=== PATIENT | male | born 1955 | race Caucasian/White ===

== ENCOUNTER → 2019-05-25 | Outpatient (REF) | payer BC ==
[2019-05-25 18:19] LABS: APPEARANCE, URINE CLEAR (CLEAR); BACTERIA, URINE AUTO NEGATIVE (NEGATIVE); BILIRUBIN, URINE AUTO NEGATIVE (NEGATIVE); BLOOD, URINE BLOOD NEGATIVE (NEGATIVE); COLOR, URINE YELLOW (YELLOW); GLUCOSE, URINE (UA) AUTO 3+ mg/dL (NEGATIVE); KETONE, URINE AUTO NEGATIVE (NEGATIVE); LEUKOCYTE ESTERASE, URINE AUTO NEGATIVE (NEGATIVE); NITRITE, URINE AUTO NEGATIVE (NEGATIVE); PROTEIN, URINE AUTO NEGATIVE (NEGATIVE); RBC, URINE AUTO 1 /HPF (0-3); SPECIFIC GRAVITY URINE AUTO 1.011 (1.002-1.035); SQUAMOUS EPITHELIAL CELL UR AU 0 /HPF (0-6); UROBILINOGEN, URINE AUTO 0.2 mg/dL (0.0-2.0); WBC, URINE AUTO 0 /HPF (0-3)
== END ==
LOC: M SMT 17:06
PROVIDERS: ATTEND Nurse Practitioner Family
DX: R35.0 Frequency of micturition (principal)

== ENCOUNTER → 2019-06-22 | Outpatient (CLI) | payer BC ==
[2019-06-22 18:48] LABS: BLOOD UREA NITROGEN 15 MG/DL (7-18); CREATININE FOR GFR 1.19 MG/DL (0.70-1.30); GLOMERULAR FILTRATION RATE > 60.0 (>49)
== END ==
LOC: M SMT 13:58
PROVIDERS: ATTEND Urology
DX: N13.8 Other obstructive and reflux uropathy (principal)

== ENCOUNTER → 2019-07-06 | Outpatient (CLI) | payer BC ==
[~2019-07-06] MED LIST: ISOVUE-370 76% 100ML VIAL (Q9967) As Ordered ONE
--- NOTE | 2019-07-06 12:57 | REP ---
T of the abdomen and pelvis without and with IV contrast, CT urogram protocol: After IV contrast, immediate and delayed scanning are performed. There are no comparisons. Clinical history states obstructive/reflux uropathy. There are no renal or ureteral calculi. There is no hydronephrosis. There are no bladder calculi. There is no perinephric stranding. There is a 1 cm right renal cortical cyst. There are no left renal cysts. There are no solid renal masses on the right on the left. There is no hydronephrosis or hydroureter on the right on the left. There is no ureteral dilatation on the right on the left. No bladder polyps or masses are identified. The visualized lung lal are unremarkable. The hepatic parenchyma is homogeneous. There are gallbladder calculi. The gallbladder is otherwise unremarkable. The pancreas, spleen, adrenals and abdominal aorta are unremarkable except for occasional aortic calcified atheroma. There is no periaortic adenopathy or mass. There is no bowel distension or obstruction. The mesentery is unremarkable. Pelvis: The appendix is unremarkable. There is diverticulosis of the descending colon and sigmoid colon without CT evidence of diverticulitis. There is no pelvic ascites. There are large pelvic sidewall nodes bilaterally measuring up to 10 ml short axis on the left and 9 mm on the right. Impression: There is no hydronephrosis or hydroureter. There is no ureteral dilatation otherwise. There are no renal masses or cysts. There are no bladder masses. There are no renal or ureteral calculi. There is bilateral pelvic sidewall adenopathy as described. There is no ascites. There are gallbladder calculi. Gallbladder is otherwise unremarkable. Electronically Signed by Esteban Manuel MD 07/06/2019 12:48 P
== END ==
LOC: M RAD 10:08
PROVIDERS: ATTEND Urology
DX: N13.8 Other obstructive and reflux uropathy (principal); N28.1 Cyst of kidney, acquired; K80.20 Calculus of gallbladder without cholecystitis without obstruction; K57.30 Diverticulosis of large intestine without perforation or abscess without bleeding; R59.0 Localized enlarged lymph nodes
CPT/HCPCS: 74178; Q9967